=== PATIENT | female | born 1950 | race Caucasian/White ===

== ENCOUNTER 2021-09-10 17:46 | Emergency (ER) | payer MEDICARE, SELFPAY ==
--- NOTE | ~2021-09-10 | XR_ITS ---
EXAMINATION: XR chest 2V DATE: 09/10/2021 19:49 INDICATION: Right-sided chest pain TECHNIQUE: PA and lateral views of the chest are obtained. COMPARISON: None available FINDINGS: The lungs are free of acute opacities. There is no pleural effusion or pneumothorax. The ca rdiomediastinal silhouette is normal. There is moderate thoracic spondylosis. Surgical clips are note d in the right breast and left axilla. IMPRESSION: 1. No acute cardiopulmonary abnormality. Reviewed, dictated and finalized at location F.
[2021-09-10 17:49] VITALS: BP 133/69; PULSE 69; RESP 14; TEMP 37.1; O2SAT 100
--- NOTE | 2021-09-10 17:52 | ECG_ITS ---
Measurements Intervals [place] Rate: 64 P: 14 ND: 159 QRS: -26 QRSD: 85 T: 15 QT: 370 QTc: 382 Interpretive Statements SINUS RHYTHM BORDERLINE LEFT AXIS DEVIATION [QRS AXIS < -20] VOLTAGE CRITERIA FOR LVH [MEETS CRITERIA IN ONE OF: R(aVL), S(V1), R(V5), R(V5/V6)+S(V1)] NO PREVIOUS ECG AVAILABLE FOR COMPARISON Electronically Signed On 09-11-2021 11:22:11 CDT by Delonte Ridley M.D.
[2021-09-10 19:40] VITALS: PULSE 60
[2021-09-10 19:49] LABS: Basophils Absolute Auto 0.1 K/mm3 (0.0-0.1); Eosinophils Absolute Auto 0.1 K/mm3 (0-0.3); Eosinophils Percent Auto 2.1 % (0-4.4); Hematocrit 43.7 % (37.0-47.0); Hemoglobin 13.7 g/dL (12.0-15.0); Immature Granulocyte Absolute 0.02 K/mm3 (0.00-0.031); Immature Granulocyte Percent A 0.3 % (0-0.5); Lymphocytes Percent Auto 33.7 % (18.3-44.2); Mean Corpuscular HGB Conc 31.4 g/dl (32-36); Mean Corpuscular Hemoglobin 31.6 pg (26-34); Mean Corpuscular Volume 100.7 fl (80-100); Mean Platelet Volume 10.1 fl (7.4-10.4); Monocytes Absolute Auto 0.8 K/mm3 (0.1-0.6); Monocytes Percent Auto 11.6 % (2.6-8.5); Neutrophils Absolute Auto 3.5 K/mm3 (1.3-6.7); Neutrophils Percent Auto 51.3 % (45.5-73.1); Platelet Count Result 233 k/mm3 (150-375); Red Blood Count 4.34 M/mm3 (4.2-5.4); Red Cell Distribution Width 13.2 % (11.5-14.5); White Blood Count 6.8 K/mm3 (4.5-10.0)
[2021-09-10] MEDS: ASPIRIN 81 MG CHEWABLE TABLET 324 MG PO (20:14)
[2021-09-10 20:49] LABS: INR 1.1; Partial Thromboplastin Time 24.9 SECONDS (22.3-36.8); Prothrombin Time 13.4 Seconds (11.1-14.7)
--- NOTE | 2021-09-10 20:50 | PC.NURSE ---
Lab called stating that repeat blood draw in green tube was hemolyzed. Ornamental Metal Erector Apprentice called at this time and asked to redraw since 2 previous samples were not accepted.
--- NOTE | 2021-09-10 21:07 | ED.CHESTPAIN ---
HPI - Chest Pain General Chief Complaint: Chest Pain Stated Complaint: chest pain Time Seen by Provider: 09/10/21 19:35 History of Present Illness HPI narrative: Patient is a 71-year-old female who presents ER with right-sided chest pain. Ongoing throughout the day. Last for about a second. Able occur for 3 to 4 minutes and go away. He can be gone for the same amount of time or will go away for much longer period. The pain is sharp. Its not related to eating or drinking. No difficulty breathing. No exertional component. She thought it was acid reflux so she drank a soda to try to belch. Patient has history of viral cardiomyopathy many years ago. She has had a recent echocardiogram at [facility] that she reports was normal. She also had normal PFTs. She has no history of coronary disease. Related Data Home Medications Medication Instructions Recorded Confirmed carvedilol 12.5 mg PO BID 09/10/21 celecoxib 200 mg PO DAILY 09/10/21 dapagliflozin [Farxiga] mg 09/10/21 furosemide 20 mg PO 3XW 09/10/21 levothyroxine [Euthyrox] 100 mcg PO DAILY 09/10/21 losartan 50 mg PO DAILY 09/10/21 mirabegron [Myrbetriq] 25 mg PO DAILY 09/10/21 potassium chloride 20 meq PO 3XW 09/10/21 Allergies Allergy/AdvReac Type Severity Reaction Status Date / Time ANTIBIOTIC Allergy Unknown Unknown Uncoded 09/10/21 20:21 Review of Systems Review of Systems: All systems reviewed & are unremarkable except as noted in HPI and below Constitutional: Constitutional: Denies chills, Denies fever(s) and Denies weakness ENT: Denies nasal congestion and Denies sore throat Cardiovascular: Cardiovascular: Reports chest pain, Denies rapid heart rate and Denies radiating jaw, neck or arm pain Respiratory: Respiratory: Denies cough, Denies dyspnea and Denies wheezing Gastrointestinal: Gastrointestinal: Denies abdominal pain, Denies diarrhea, Denies nausea and Denies vomiting Musculoskeletal: Musculoskeletal: Denies back pain and Denies arthralgias [facility] Past Medical History Medical History (Updated 09/10/21 @ 21:59 by Donald Escobar MD) Depression Hypertension Hypothyroidism Overactive bladder Viral cardiomyopathy Surgical History Surgical History (Updated 09/10/21 @ 21:10 by Donald Escobar MD) History of appendectomy History of lumpectomy of left breast Social History Social History (Updated 09/10/21 @ 21:11 by Donald Escobar MD) Smoking status: Never smoker Exam Narrative: GENERAL: Well-appearing, well-nourished, and in no acute distress. HEAD: Normocephalic, atraumatic. EYES: PERRL and EOMI. ENT: Mucous membranes moist. CHEST: Clear to auscultation. No respiratory distress. HEART: Regular rate and rhythm. Normal peripheral pulses. ABDOMEN: Soft, nontender, nondistended. EXTREMITIES: Normal range of motion. No edema. SKIN: Warm, dry, no rash. NEURO: Alert and oriented x3. PSYCH: Normal mood and affect. Course Course Emergency Course: Unremarkable evaluation. Troponin negative. Symptoms felt to be muscular in nature and etiology not related to pneumonia/PE/[place]. Follow-up with PCP and human capital analyst. GI cocktail produced no change. Vital Signs Vital signs: Vital Signs Temperature 98.7 F 09/10/21 17:49 Pulse Rate 69 09/10/21 17:49 Respiratory Rate 14 09/10/21 17:49 Blood Pressure 133/69 09/10/21 17:49 Pulse Oximetry 100 09/10/21 17:49 Temperature 98.7 F 09/10/21 17:49 Pulse Rate 58 L 09/10/21 21:30 Respiratory Rate 18 09/10/21 21:30 Blood Pressure 121/68 09/10/21 21:30 Pulse Oximetry 99 09/10/21 21:30 MDM - Chest Pain Lab Data Result diagrams: 09/10/21 19:44 09/10/21 21:21 Labs: Lab Results 09/10/21 09/10/21 09/10/21 Range/Units 19:44 20:32 21:21 WBC 6.8 (4.5-10.0) K/mm3 RBC 4.34 (4.2-5.4) M/mm3 Hgb 13.7 (12.0-15.0) g/dL Hct 43.7 (37.0-47.0) % MCV 100.7 H (80-100) fl MCH 31.6 (26-34) pg M
[2021-09-10 21:30] VITALS: BP 121/68; PULSE 58; RESP 18; O2SAT 99
[2021-09-10 21:37] LABS: Alanine Aminotransferase 25 U/L (4-35); Alkaline Phosphatase 82 U/L (38-126); Anion Gap 6 mmol/L (8-16); Aspartate Amino Transferase 39 U/L (14-36); Bilirubin,Total 0.3 mg/dL (0.2-1.3); Blood Urea Nitrogen 21 mg/dL (7-17); Calcium 9.2 mg/dL (8.4-10.2); Carbon Dioxide 28 mmol/L (22-30); Chloride 104 mmol/L (98-107); Estimated CRCL calculation 42 ml/min; Estimated Glomerular Filt Rate > 60; Glucose 80 mg/dL (65-110); Lipase 145 U/L (23-300); Potassium 3.8 mmol/L (3.4-5.0); Sodium 138 mmol/L (137-145)
[2021-09-10] MEDS: BELLADONNA ALK/PHENOB ELIX 10 ML, MAG HYDROX/ALUMINUM HYD/SIMETH 30 ML, LIDOCAINE HCL 2... PO (21:38)
[2021-09-10 21:51] LABS: Troponin I < 0.012 ng/mL (0.000-0.034)
[2021-09-10 22:21] VITALS: BP 123/70; PULSE 60; RESP 16; O2SAT 98
== END 2021-09-10 22:23 | disposition home or self-care (01) ==
PROVIDERS: Emergency Medicine; Emergency Provider Emergency Medicine
DX: R07.89 Other chest pain (principal); I10 Essential (primary) hypertension; E03.9 Hypothyroidism, unspecified; N32.81 Overactive bladder; R94.31 Abnormal electrocardiogram [ECG] [EKG]
CPT/HCPCS: 36415; 71046; 80053; 83690; 84484; 85025; 85610; 85730; 93005; 99284; A9270